=== PATIENT | female | born 1985 | race Caucasian/White ===

== ENCOUNTER 2018-08-03 17:21 | Emergency (ER) | payer OTHER ==
[~2018-08-03] VITALS: Ht 162.6 cm; Wt 72.7 kg
[2018-08-03 17:21] VITALS: BP 128/77
[2018-08-03] MEDS ORDERED: ONDANSETRON 4 MG ORAL DISINTEGRATING TAB (Q0162 PER 1MG) PO ONE (18:00)
[2018-08-03] MEDS ORDERED: ACETAMINOPHEN 325 MG TAB PO ONE (18:00)
[2018-08-03 18:33] LABS: INFLUENZA A AMPLIFICATION POSITIVE (NEGATIVE); INFLUENZA B AMPLIFICATION NEGATIVE (NEGATIVE)
[2018-08-03] MEDS ORDERED: ONDA4TAB6 PO ×2 (19:06→19:34)
[2018-08-03] MEDS ORDERED: OSEL75CA PO ×2 (19:06→19:34)
[2018-08-03] MEDS ORDERED: OSELTAMIVIR PHOSPHATE 75 MG CAP (TAMIFLU) PO ONE (19:15)
== END 2018-08-03 19:42 | disposition home or self-care (01) ==
LOC: M ED 17:21
DX: J09.X2 Influenza due to identified novel influenza A virus with other respiratory manifestations (principal); Z91.89 Other specified personal risk factors, not elsewhere classified
CPT/HCPCS: 87502; 99283; Q0162

== ENCOUNTER → 2018-10-16 | Outpatient (CLI) | payer OTHER ==
[~2018-10-16] MED LIST: ONDA4TAB6 PO; OSEL75CA PO
[2018-10-16 09:56] LABS: ESTRADIOL 138.3 PG/ML; PROGESTERONE 37.57 NG/ML; THYROID STIMULATING HORMONE 1.33 uIU/ML (0.358-3.740)
== END ==
LOC: M LAB 08:23
PROVIDERS: ATTEND Obstetrics & Gynecology Reproductive Endocrinology
DX: E28.9 Ovarian dysfunction, unspecified (principal)

== ENCOUNTER → 2019-01-21 | Outpatient (CLI) | payer OTHER ==
[2019-01-21 11:04] LABS: THYROID STIMULATING HORMONE 0.289 uIU/ML (0.358-3.740)
[2019-01-21 14:25] LABS: PROGESTERONE 13.67 NG/ML
== END ==
LOC: M LAB 09:13
PROVIDERS: ATTEND Obstetrics & Gynecology Reproductive Endocrinology
DX: E28.9 Ovarian dysfunction, unspecified (principal)

== ENCOUNTER → 2019-01-25 | Outpatient (CLI) | payer OTHER ==
[2019-01-25 09:27] LABS: HCG, SERUM QUANTITATIVE < 1.0 MIU/ML; THYROID STIMULATING HORMONE 0.548 uIU/ML (0.358-3.740)
[2019-01-25 10:02] LABS: PROGESTERONE 48.23 NG/ML
== END ==
LOC: M LAB 08:30
PROVIDERS: ATTEND Obstetrics & Gynecology Reproductive Endocrinology
DX: E28.9 Ovarian dysfunction, unspecified (principal)

== ENCOUNTER → 2019-03-22 | Outpatient (CLI) | payer OTHER | LOC: M LAB 10:09 | PROVIDERS: ATTEND Obstetrics & Gynecology Reproductive Endocrinology | DX: Z32.00 Encounter for pregnancy test, result unknown (principal) ==

== ENCOUNTER → 2019-04-24 | Outpatient (CLI) | payer OTHER ==
[2019-04-24 08:20] LABS: THYROID STIMULATING HORMONE 0.813 uIU/ML (0.358-3.740)
[2019-04-24 11:11] LABS: ESTRADIOL 175.9 PG/ML; PROGESTERONE 35.77 NG/ML
== END ==
LOC: M LAB 07:20
PROVIDERS: ATTEND Obstetrics & Gynecology Reproductive Endocrinology
DX: E28.9 Ovarian dysfunction, unspecified (principal)

== ENCOUNTER → 2019-04-29 | Outpatient (CLI) | payer OTHER ==
[2019-04-29 10:19] LABS: PROGESTERONE 42.48 NG/ML
== END ==
LOC: M LAB 07:35
PROVIDERS: ATTEND Obstetrics & Gynecology Reproductive Endocrinology
DX: E28.9 Ovarian dysfunction, unspecified (principal)

== ENCOUNTER 2019-05-16 20:10 | Emergency (ER) | payer OTHER ==
[~2019-05-16] VITALS: Ht 154.9 cm; Wt 72.7 kg
[2019-05-16] MEDS ORDERED: PROG50IN4 IM (20:34)
[2019-05-16] MEDS ORDERED: PRED10TA2 PO (20:34)
[2019-05-16] MEDS ORDERED: ESTR1TAB PO (20:34)
[2019-05-16] MEDS ORDERED: MULTTAB20 PO (20:35)
[2019-05-16] MEDS ORDERED: ENDO100S PV (20:35)
[2019-05-16 21:03] LABS: BASO % 0.3 % (0.0-1.0); EOS # 0.1 10^3/uL (0.0-0.5); EOS % 0.7 % (0.0-3.0); HEMATOCRIT 38.5 % (36.0-47.0); HEMOGLOBIN 12.7 g/dl (12.0-15.5); LYMPH # 3.3 10^3/uL (1.5-5.0); LYMPH % 29.7 % (24.0-44.0); MEAN CORPUSCULAR HEMOGLOBIN 31.8 pg (27.0-33.0); MEAN CORPUSCULAR VOLUME 96.5 fl (80.0-96.0); MONO # 0.8 10^3/uL (0.0-0.8); MONO % 7.5 % (0.0-5.0); NEUTROPHILS # 6.9 10^3/uL (1.5-8.5); NEUTROPHILS % 61.5 % (36.0-66.0); PLATELET COUNT, AUTOMATED 309 10^3/uL (150-450); RED BLOOD COUNT 3.99 10^6/uL (4.00-5.40); WHITE BLOOD COUNT 11.2 10^3/uL (4.0-10.0)
[2019-05-16 21:13] LABS: BLOOD UREA NITROGEN 12 MG/DL (7-18); CARBON DIOXIDE LEVEL 25 MEQ/L (21-32); CHLORIDE LEVEL 109 MEQ/L (98-107); CREATININE FOR GFR 0.85 MG/DL (0.55-1.30); GLOMERULAR FILTRATION RATE > 60.0 (>60); GLUCOSE, FASTING 127 MG/DL (70-100); POTASSIUM SERUM 3.9 MEQ/L (3.5-5.1); SODIUM LEVEL 142 MEQ/L (136-145)
[2019-05-16] MEDS ORDERED: MORPHINE 4 MG/ML 1ML VIAL/SYRINGE (J2270) IV ONE ×2 (22:00→23:45)
[2019-05-16] MEDS ORDERED: NS 1,000 ML IV ONE (22:00)
[2019-05-16 22:38] LABS: HCG, SERUM QUANTITATIVE 2566 MIU/ML
--- NOTE | 2019-05-16 23:36 | REPVR ---
PROCEDURE INFORMATION: Exam: US First Trimester, Transabdominal Exam date and time: 05/16/2019 10:39 PM Age: 33 years old Clinical indication: complicated by abdominal or pelvic pain; Right lower quadrant; First trimester; Gestational age or lmp: 04/01/19; ; Additional info: Vag bleeding TECHNIQUE: Imaging protocol: Real-time transabdominal obstetrical ultrasound of the maternal pelvis and a first trimester , less than 14 weeks 0 days, with image documentation. COMPARISON: US PELVIC NON-OB COMPLETE 01/03/2015 4:10 AM FINDINGS: GESTATION: Gestation: Nonvisualized. Heart rate: Nonvisualized. Placenta: Nonvisualized. Amniotic fluid: Nonvisualized. BIOMETRY: Estimated gestational age: Gestational age by last menstrual period 6 weeks 3 days. MATERNAL: Uterus: The uterus measures 7.8 x 5.6 x 4.6 cm. Retroverted uterus. The endometrial stripe measures 8 mm. Doppler flow is present within the endometrial stripe. Cervix: Poorly visualized. Right adnexa: Right ovary measures 2.2 x 1.3 x 1.5 cm. Normal Doppler flow, arterial and venous waveforms in the right ovary. There is a questionable small hyperechoic lesion in the right adnexal region not well delineated from the ovarian parenchyma. Left adnexa: Left ovary measures 1.9 x 1.7 x 1.4 cm. Normal Doppler flow, arterial and venous waveform in the left ovary. Intraperitoneal: Small amount of anechoic free fluid noted in the pelvis, commonly physiologic. IMPRESSION: 1. of unknown location. Recommend short interval follow-up ultrasound and lab evaluation. 2. Questionable small lesion within the right adnexa may represent an involuting cyst, the lesion is not well delineated from the ovarian parenchyma and ectopic is considered unlikely although recommend attention on short-term follow-up ultrasound given of unknown location. 3. Thickened endometrial stripe, possibly with internal Doppler flow which can be seen with endometrial hyperplasia and polyps, less likely malignancy at this age. Attention on follow-up. Electronically signed by: Gilmar Finn On 05/16/2019 23:36:14 PM
[2019-05-17 00:23] VITALS: BP 107/58
== END 2019-05-17 00:29 | disposition home or self-care (01) ==
LOC: M ED 20:10
DX: O20.0 Threatened abortion (principal); O09.811 Supervision of pregnancy resulting from assisted reproductive technology, first trimester; Z3A.01 Less than 8 weeks gestation of pregnancy; O99.89 Other specified diseases and conditions complicating pregnancy, childbirth and the puerperium; E28.2 Polycystic ovarian syndrome; Z79.52 Long term (current) use of systemic steroids; Z79.890 Hormone replacement therapy; Z79.899 Other long term (current) drug therapy; Z80.49 Family history of malignant neoplasm of other genital organs; O99.841 Bariatric surgery status complicating pregnancy, first trimester
CPT/HCPCS: 76801; 76817; 80048; 84702; 85025; 86850; 86900; 86901; 93976; 96374; 96376; 99284; J2270

== ENCOUNTER → 2019-06-07 | Outpatient (CLI) | payer OTHER ==
[~2019-06-07] MED LIST changes: +ENDO100S PV; +ESTR1TAB PO; +MULTTAB20 PO; +PRED10TA2 PO; +PROG50IN4 IM
== END ==
LOC: M LAB 11:10
PROVIDERS: ATTEND Obstetrics & Gynecology Reproductive Endocrinology
DX: O09.00 Supervision of pregnancy with history of infertility, unspecified trimester (principal); Z3A.00 Weeks of gestation of pregnancy not specified

== ENCOUNTER → 2020-01-19 | Outpatient (REF) | payer OTHER | LOC: M WUC 16:54 | PROVIDERS: ATTEND Nurse Practitioner Family | DX: N39.0 Urinary tract infection, site not specified (principal) ==

== ENCOUNTER → 2020-01-24 | Outpatient (CLI) | payer OTHER ==
[2020-01-24 14:37] LABS: APPEARANCE, URINE HAZY (CLEAR); BACTERIA, URINE AUTO 2+ (NEGATIVE); BILIRUBIN, URINE AUTO NEGATIVE (NEGATIVE); BLOOD, URINE BLOOD 2+ (NEGATIVE); COLOR, URINE YELLOW (YELLOW); GLUCOSE, URINE (UA) AUTO NEGATIVE (NEGATIVE); KETONE, URINE AUTO NEGATIVE (NEGATIVE); LEUKOCYTE ESTERASE, URINE AUTO NEGATIVE (NEGATIVE); MUCUS, URINE SMALL (NEGATIVE); NITRITE, URINE AUTO NEGATIVE (NEGATIVE); PROTEIN, URINE AUTO NEGATIVE (NEGATIVE); RBC, URINE AUTO 4 /HPF (0-3); SPECIFIC GRAVITY URINE AUTO 1.025 (1.002-1.035); SQUAMOUS EPITHELIAL CELL UR AU 12 /HPF (0-6); UROBILINOGEN, URINE AUTO 0.2 mg/dL (0.0-2.0); WBC, URINE AUTO 3 /HPF (0-3)
[2020-01-24 14:38] LABS: BASO % 0.5 % (0.0-1.0); EOS # 0.1 10^3/uL (0.0-0.5); EOS % 1.2 % (0.0-3.0); HEMOGLOBIN 12.9 g/dl (12.0-15.5); LYMPH # 2.4 10^3/uL (1.5-5.0); LYMPH % 26.6 % (24.0-44.0); MEAN CORPUSCULAR HEMOGLOBIN 31.9 pg (27.0-33.0); MEAN CORPUSCULAR HGB CONC 33.1 g/dl (32.0-36.5); MEAN CORPUSCULAR VOLUME 96.5 fl (80.0-96.0); MONO # 0.8 10^3/uL (0.0-0.8); MONO % 8.9 % (0.0-5.0); NEUTROPHILS # 5.5 10^3/uL (1.5-8.5); NEUTROPHILS % 62.6 % (36.0-66.0); PLATELET COUNT, AUTOMATED 304 10^3/uL (150-450); RED BLOOD COUNT 4.04 10^6/uL (4.00-5.40); WHITE BLOOD COUNT 8.9 10^3/uL (4.0-10.0)
[2020-01-24 15:14] LABS: HEMOGLOBIN A1c 5.2 %
[2020-01-24 15:38] LABS: BLOOD UREA NITROGEN 16 MG/DL (7-18); CALCIUM LEVEL 9.3 MG/DL (8.5-10.1); CARBON DIOXIDE LEVEL 29 MEQ/L (21-32); CHLORIDE LEVEL 106 MEQ/L (98-107); CREATININE FOR GFR 0.81 MG/DL (0.55-1.30); GLOMERULAR FILTRATION RATE > 60.0 (>60); GLUCOSE, FASTING 105 MG/DL (70-100); POTASSIUM SERUM 3.7 MEQ/L (3.5-5.1); SODIUM LEVEL 139 MEQ/L (136-145)
[2020-01-24 16:10] LABS: MALB URINE SIEMENS 24.6 MG/L; MAU/CREAT RATIO 8.9 MCG/MG (0.0-30.0); TOTAL PROTEIN,RANDOM URINE 19.9 MG/DL (0.0-12.0)
== END ==
LOC: M LAB 13:54
PROVIDERS: ATTEND Internal Medicine Nephrology
DX: Z00.5 Encounter for examination of potential donor of organ and tissue (principal)

== ENCOUNTER → 2025-03-19 | Outpatient (CLI) | payer OTHER ==
[~2025-03-19] MED LIST changes: +ONDA-282 PO; -ONDA4TAB6 PO
== END ==
LOC: M LAB 17:47
PROVIDERS: ATTEND Nurse Practitioner Acute Care
DX: O02.1 Missed abortion (principal)